=== PATIENT | male | born 1995 | race Caucasian/White ===

== ENCOUNTER 2023-05-02 20:19 | Emergency (ER) | payer OTHER ==
[~2023-05-02] VITALS: Ht 182.9 cm; Wt 97.5 kg
[2023-05-02 20:22] VITALS: BP 154/81; PULSE 77; RESP 16; TEMP 98.2; O2SAT 97
--- NOTE | 2023-05-02 20:25 | NUR ---
TO BED AMBULATORY
[2023-05-02] MEDS ORDERED: cefTRIAXone 1,000 MG in LIDOCAINE MPF 1% 2.1 ML IM ONE (21:15)
[2023-05-02] MEDS ORDERED: KETOROLAC 60 MG/2 ML VIAL IM ONE (21:15)
[2023-05-02] MEDS ORDERED: LIDOCAINE MPF 1% 5 ML ONE (21:20)
[2023-05-02] MEDS ORDERED: cefTRIAXone 1,000 MG VIAL ONE (21:20)
[2023-05-02] MEDS ORDERED: NAPR-54 PO (21:22)
[2023-05-02] MEDS ORDERED: CEPH-588 PO (21:22)
--- NOTE | 2023-05-02 21:35 | NUR ---
27 YO M BIB SELF C/O LEFT LEG PAIN THAT RADIATES TO ANUS. PT STATES HE WAS EXERCISING WHEN HE FELT PULL IN LEFT LEG THAT SOON RADIATED TO ANUS. STATES HE FELT A SMALL ABSCESS ON RECTUM THAT WOULD APPEAR THEN DISAPPEAR. STATES PAIN 6/10. DENIES BLEEDING FROM RECTUM. AXO4. CALL LIGHT WITHIN REACH. NKDA NO MED HX.
[2023-05-02 21:45] VITALS: O2SAT 97
--- NOTE | 2023-05-02 21:47 | NUR ---
Patient discharged with v/s stable. Written and verbal after care instructions given and explained. Patient verbalized understanding. Ambulatory with steady gait. All questions addressed prior to discharge. Advised to follow up with PMD.
--- NOTE | 2023-05-02 22:05 | NUR ---
The patient's care was reviewed and supervised by Mariana Messer RN, RN.
== END 2023-05-02 21:47 | disposition home or self-care (01) ==
LOC: MED 20:19
DX: K61.1 Rectal abscess (principal); Z79.899 Other long term (current) drug therapy
CPT/HCPCS: 96372; 99284; J0696; J1885; J2001

== ENCOUNTER 2023-12-18 20:30 | Emergency (ER) | payer OTHER ==
[~2023-12-18] VITALS: Ht 182.9 cm; Wt 93.0 kg
[~2023-12-18 20:30] MED LIST: CEPH-588 PO; NAPR-54 PO
[2023-12-18 20:42] VITALS: BP_SYST 150; BP_SYST 159; BP_DIAS 106; BP_DIAS 89; PULSE 104; RESP 20; TEMP 97.4; O2SAT 95
[2023-12-18 21:03] VITALS: TEMP 98.3; O2SAT 99
[2023-12-18] MEDS: IBUPROFEN 600 MG TAB PO ONE (21:15)
[2023-12-18 21:44] VITALS: BP 153/78; PULSE 78; RESP 14; O2SAT 98
== END 2023-12-18 21:44 | disposition home or self-care (01) ==
LOC: MED 20:30
DX: R07.89 Other chest pain (principal); R07.0 Pain in throat; Z79.899 Other long term (current) drug therapy
CPT/HCPCS: 71046; 87081; 99284